=== PATIENT | male | born 1985 | race Caucasian/White ===

== ENCOUNTER 2022-03-20 21:15 | Emergency (ER) | payer OTHER, SELFPAY ==
[2022-03-20 21:21] VITALS: BP 128/91; PULSE 94; RESP 20; TEMP 37.3; O2SAT 97; BMI 27.6
--- NOTE | 2022-03-20 23:05 | ED_ITS ---
HPI - Skin/Abscess/Foreign Bdy General Chief complaint: Skin/Abscess/Foreign Body Stated complaint: SHINGLES PAINFUL Time Seen by Provider: 03/20/22 22:56 Source: patient Mode of arrival: Ambulatory History of Present Illness HPI narrative: Otherwise healthy 36-year-old gentleman with Covid19 resolved approximately 2 weeks ago developing increasing left-sided chest pain that he felt was a pulled muscle. He was talking about it with a friend who looked at the area and suggested that it might in fact be shingles. Comes in for further evaluation. Complains of severe pain to the point that he is unable sleeper find a comfortable position with significant rash appreciated. He has not had any fevers, cough is resolved, no chills, no myalgias, headache, abdominal pain, vomiting, diarrhea. Related Data Previous Rx's Medication Instructions Recorded methocarbamol 500 mg tablet 500 mg PO QID PRN muscle spasm #10 04/26/19 tabs gabapentin 100 mg capsule 100 mg PO BEDTIME #30 caps 03/20/22 (Neurontin) lidocaine 1.8 % topical patch 1 patch topical DAILY #30 ea 03/20/22 oxycodone-acetaminophen 5 mg-325 1 tab PO Q6H PRN pain #20 tabs 03/20/22 mg tablet valacyclovir 1 gram tablet 1,000 mg PO TID #21 tabs 03/20/22 Allergies Allergy/AdvReac Type Severity Reaction Status Date / Time No Known Drug Allergies Allergy Verified 04/26/19 16:02 Review of Systems Review of Systems Narrative: Remainder of complete review of systems is otherwise unremarkable except for that included in the HPI. Patient History Medical History (Updated 03/20/22 @ 23:12 by Lilia Richard MD) COVID Shingles Social History Smoking Status: Never smoker Smoking Status: Never smoker Substance Use Type: does not use Exam Initial Vital Signs Initial Vital Signs: Vital Signs Temperature 99.2 F 03/20/22 21:21 Pulse Rate 94 H 03/20/22 21:21 Respiratory Rate 20 03/20/22 21:21 Blood Pressure 128/91 H 03/20/22 21:21 Pulse Oximetry 97 03/20/22 21:21 Oxygen Delivery Method 03/20/22 21:21 General: Alert, appropriate, in moderate pain and moving about the bed trying to find a comfortable position Respiratory: Able to speak in full sentences, no obvious respiratory distress Skin: Large shingles rash in the left T5 distribution, erythematous base with vesicular lesions prior to crusting. No obvious superinfection. Minor adenopathy left axilla Neurologic: Grossly intact no obvious asymmetries or abnormalities Psych: appropriate insight and affect, cooperative Course Orders Ordered: Oxycodone/Acetaminophen (Oxycodone/Apap 5/325 Prepack) 1 bottle MISC SEEINSTR ONE Stop: 03/20/22 23:07 Vital Signs Vital signs: Vital Signs - 8 hr 03/20/22 21:21 Temperature 99.2 F Pulse Rate 94 H Respiratory Rate 20 Blood Pressure 128/91 H Pulse Oximetry 97 Oxygen Delivery Method Room Air MDM - Skin/Abscess/Foreign Bdy MDM Narrative Medical decision making narrative: 36-year-old gentleman with rather impressive T5 distribution left-sided shingles rash. Will treat him with valacyclovir, he will continue to use ibuprofen and Tylenol and for severe pain in add Percocet into that. For the neuropathic pain going to have him try 100 mg of Neurontin at night along with careful instructions on use, side effects and benefits. If ineffective have suggested that he not continue it. I have also given a prescription for lidocaine patches to use once the rash heals in case he is continuing to have neuropathic pain. No evidence of bacterial superinfection at this time. Anticipated course of recovery is reviewed along with suggestions to avoid transmission. He is safe for home discharge Discharge Plan Departure Patient Disposition: Home Clinical Impression: Herpes zoster Instructions: DI for Shingles Activity Restrictions/Additional Instructions: You do have shingles Please begin 7 days of the [place] acyclovir 3 times a day. This can help reduce the continued spread and reduce the risk of neuropathic pain as this heals Using 400 mg of ibuprofen (2 [id number]-lutvgye pills) and 1 Tylenol every 6 hours can be very helpful in controlling pain. For severe pain using to ibuprofen and 1 Percocet will be helpful. I have given you a prescription for Neurontin, 100 mg to use at bedtime. This m edicine can help modulate nerve related pain. If after 2-3 nights it is ineffective, please do not continue As the rash dries, the crusting can be just is painful. Using a very emollients cream such as Eucerin can be helpful After the rash is gone, if you are continuing to have nerve pain around your chest wall, you can try an use the lidocaine patches. Do not use the patches while you still have any open sores or crusting. I have given this as a written prescription, if you are not having persistent pain you do not need to fill this. Other prescriptions were all [facility] Please do watch for bacterial superinfection. If you have increasing pain after it had been healing, increasing redness purulence drainage smell or fevers chills or body aches you do need to be re-evaluated I hope you heal quickly Prescriptions: New valacyclovir 1 gram tablet 1,000 mg PO TID Qty: 21 0RF oxycodone-acetaminophen 5-325 mg tablet 1 tab PO Q6H PRN (Reason: pain) Qty: 20 0RF lidocaine 1.8 % adhesive patch,medicated 1 patch topical DAILY Qty: 30 0RF Rx Instructions: leave on most painful area for up to 12 hrs gabapentin [Neurontin] 100 mg capsule 100 mg PO BEDTIME Qty: 30 0RF No Action methocarbamol 500 mg tablet 500 mg PO QID PRN (Reason: muscle spasm) Qty: 10 0RF
[2022-03-20] MEDS: OXYCODONE/APAP 5/325 PREPACK 1 BOTTLE MISC (23:27)
[2022-03-20 23:35] VITALS: BP 141/91; PULSE 89; O2SAT 100
== END 2022-03-20 23:36 | disposition home or self-care (01) ==
PROVIDERS: Emergency Provider Emergency Medicine
DX: B02.9 Zoster without complications (principal)
CPT/HCPCS: 99281

== ENCOUNTER 2022-08-11 09:39 | Emergency (ER) | payer OTHER, SELFPAY ==
[2022-08-11 09:44] VITALS: BP 125/90; PULSE 75; RESP 15; TEMP 36.3; O2SAT 97; BMI 27.6
--- NOTE | 2022-08-11 09:47 | DI.RAD.S_ITS ---
PROCEDURE: XR CHEST 1V INDICATIONS: chest pain TECHNIQUE: One view of the chest was acquired. COMPARISON: None. FINDINGS: Surgical changes and devices: None. Lungs and pleura: Lungs are clear. No pleural effusions or pneumothorax. Mediastinum: Mediastinal contours appear normal. Heart size is normal. Bones and chest wall: No suspicious bony lesions. Overlying soft tissues appear unremarkable. IMPRESSION: No acute cardiopulmonary process demonstrated radiographically. Dictated by: Matt Espitia M.D. on 08/11/2022 at 9:07 Approved by: Matt Espitia M.D. on 08/11/2022 at 9:08
[2022-08-11 10:07] LABS: Add Manual Diff / Slide Review NO; Basophils Absolute Auto 0 /uL (0-100); Basophils Percent Auto 0.8 % (0-2); Eosinophils Absolute Auto 100 /uL (0-450); Eosinophils Percent Auto 2.6 % (2-4); Hematocrit 50.3 % (41-53); Lymphocytes Absolute Auto 1300 /uL (1100-4500); Lymphocytes Percent Auto 23.2 % (25-40); Mean Corpuscular HGB Conc 33.9 % (30-36); Mean Corpuscular Hemoglobin 31.3 PG (26-34); Mean Corpuscular Volume 92.5 fL (80-100); Monocytes Absolute Auto 500 /uL (0-900); Monocytes Percent Auto 9.6 % (3-14); Neutrophils Absolute Auto 3400 /uL (1500-7000); Neutrophils Percent Auto 63.8 % (50-75); Platelet Count 274 X10^3/uL (150-400); Red Blood Cell Count 5.44 X10^6/uL (4.5-5.9); Red Cell Distribution Width 12.4 % (11.6-14.8); White Blood Cell Count 5.4 X10^3/uL (4.5-11.0)
[2022-08-11 10:10] LABS: INR 1.1 (0.9-1.3); Prothrombin Time 12.6 SECONDS (10.1-12.7)
[2022-08-11 10:13] LABS: PTT Partial Thromboplastin Tim 31 SECONDS (26-36)
[2022-08-11 10:15] LABS: Alanine Aminotransferase 50 IU/L (<50); Albumin 4.6 g/dL (3.5-5.0); Albumin Globulin Ratio 1.2 (1.0-2.8); Alkaline Phosphatase 81 U/L (38-126); Aspartate Aminotransferase 42 IU/L (17-59); BUN Creatinine Ratio 11.6 (6-22); Bilirubin Total 0.7 mg/dL (0.2-1.3); Blood Urea Nitrogen 15 mg/dL (9-20); Calcium 9.1 mg/dL (8.4-10.2); Carbon Dioxide 27 mmol/L (22-32); Chloride 104 mmol/L (98-107); Creatine Kinase 153 U/L (55-170); Estimated Glomerular Filt Rate > 60 mL/min (>60); Glucose 99 mg/dL (70-100); HEMOLYSIS < 15 (0-50); Lipase 40 U/L (23-300); Potassium 4.2 mmol/L (3.4-5.1); Sodium 140 mmol/L (137-145); Total Protein 8.6 g/dL (6.3-8.2)
[2022-08-11 10:27] LABS: Troponin I < 0.012 ng/mL (0.01-0.034)
[2022-08-11 10:30] LABS: CKMB % Relative Index 0.8 % (1.5-5.0); Creatine Kinase MB 1.27 ng/mL (<2.37)
== END 2022-08-11 11:16 | disposition left against medical advice (07) ==
PROVIDERS: Emergency Provider Emergency Medicine
DX: R07.9 Chest pain, unspecified (principal); R06.02 Shortness of breath; Z53.21 Procedure and treatment not carried out due to patient leaving prior to being seen by health care provider
CPT/HCPCS: 36415; 71045; 80053; 82550; 82553; 83690; 83735; 84484; 85025; 85610; 85730; 93005; 93010; 99283

== ENCOUNTER → 2024-04-19 11:56 | Outpatient (CLI) | payer OTHER, SELFPAY ==
[2024-04-19 12:46] LABS: Add Manual Diff / Slide Review NO; Basophils Absolute Auto 0 /uL (0-100); Basophils Percent Auto 0.9 % (0-2); Eosinophils Absolute Auto 100 /uL (0-450); Eosinophils Percent Auto 3.1 % (2-4); Hematocrit 44.8 % (41-53); Hemoglobin 15.4 g/dL (13.5-17.5); Lymphocytes Absolute Auto 1200 /uL (1100-4500); Lymphocytes Percent Auto 26.2 % (25-40); Mean Corpuscular HGB Conc 34.4 % (30-36); Mean Corpuscular Hemoglobin 32.1 PG (26-34); Mean Corpuscular Volume 93.2 fL (80-100); Monocytes Absolute Auto 500 /uL (0-900); Monocytes Percent Auto 10.2 % (3-14); Neutrophils Absolute Auto 2700 /uL (1500-7000); Neutrophils Percent Auto 59.6 % (50-75); Platelet Count 292 X10^3/uL (150-400); Red Cell Distribution Width 12.7 % (11.6-14.8); White Blood Cell Count 4.5 X10^3/uL (4.5-11.0)
[2024-04-19 13:10] LABS: Alanine Aminotransferase 111 IU/L (<50); Albumin 4.5 g/dL (3.5-5.0); Albumin Globulin Ratio 1.5 (1.0-2.8); Alkaline Phosphatase 79 U/L (38-126); Aspartate Aminotransferase 66 IU/L (17-59); BUN Creatinine Ratio 12.3 (6-22); Bilirubin Total 0.7 mg/dL (0.2-1.3); Blood Urea Nitrogen 16 mg/dL (9-20); Calcium 9.4 mg/dL (8.4-10.2); Carbon Dioxide 26 mmol/L (22-32); Chloride 104 mmol/L (98-107); Cholesterol 227 mg/dL (140-199); Estimated Glomerular Filt Rate > 60 mL/min (>60); Globulin 3.1 g/dL (1.7-4.1); Glucose 88 mg/dL (70-100); HDL Cholesterol 40 mg/dL (40-60); HEMOLYSIS < 15 (0-50); LDL Cholesterol Calculated 165 mg/dL (<100); Potassium 4.3 mmol/L (3.4-5.1); Sodium 138 mmol/L (137-145); Total Protein 7.6 g/dL (6.3-8.2); Triglycerides 110 mg/dL (35-150)
[2024-04-19 13:40] LABS: Prostate Specific Antigen 1.05 ng/mL (0.10-4.00)
== END ==
PROVIDERS: PCP Family Medicine; Referring Provider Family Medicine; Visit Provider Family Medicine
DX: Z00.00 Encounter for general adult medical examination without abnormal findings (principal); E78.5 Hyperlipidemia, unspecified; R79.89 Other specified abnormal findings of blood chemistry; E34.9 Endocrine disorder, unspecified
CPT/HCPCS: 36415; 80053; 80061; 82672; 84153; 84402; 84403; 85025

== ENCOUNTER → 2024-04-30 06:58 | Outpatient (CLI) | payer OTHER, SELFPAY ==
--- NOTE | 2024-04-30 06:59 | DI.US.S_ITS ---
PROCEDURE: US ABDOMEN LIMITED INDICATIONS: LIVER ENZYMES ELEVATED TECHNIQUE: Real-time scanning was performed of the abdominal and retroperitoneal organs, with image documentation. COMPARISON: None. FINDINGS: Liver: Liver is normal in size and diffuse increased in echogenicity. Portions of the liver are not well visualized due to overlying bowel gas. Gallbladder: No gallstones. No wall thickening. No pericholecystic edema. Negative sonographic Silva's sign. Biliary ducts: Intrahepatic bile ducts are non-dilated. Extrahepatic bile duct caliber measures 4 mm. Normal is 6-7 mm or less in diameter, or 10 mm or less post-cholecystectomy. Pancreas: Pancreas is not well visualized due to overlying bowel gas. Miscellaneous: No free abdominal fluid. IMPRESSION: Diffusely increased hepatic echogenicity is nonspecific, but most commonly encountered in the setting of hepatic steatosis. However, other causes of hepatocellular disease are not excluded. Recommend clinical correlation. Approved by: Lake Ariza M.D. on 04/30/2024 at 10:52
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
== END ==
PROVIDERS: PCP Family Medicine; Referring Provider Family Medicine; Visit Provider Family Medicine
DX: R79.89 Other specified abnormal findings of blood chemistry (principal); R05.3 Chronic cough
CPT/HCPCS: 71046; 76705

== ENCOUNTER → 2024-11-19 11:30 | Outpatient (CLI) | payer OTHER, SELFPAY ==
[2024-11-19 11:50] LABS: Semen Sperm Prescence Post-Vas Absent (ABSENT)
== END ==
LOC: LAB 11:31
PROVIDERS: PCP Family Medicine; Referring Provider Family Medicine; Visit Provider Family Medicine
DX: Z98.52 Vasectomy status (principal)
CPT/HCPCS: 89321